=== PATIENT | male | born 1990 | race Caucasian/White ===

== ENCOUNTER 2019-12-27 17:45 | Emergency (ER) | payer BC ==
[~2019-12-27] VITALS: Ht 167.6 cm; Wt 79.5 kg
[2019-12-27 18:10] VITALS: TEMP 97.8
[2019-12-27 18:44] LABS: BASO % 0.4 % (0.0-2.0); EOS # 0.2 (0.0-0.7); EOS % 2.3 % (0-4.0); GRAN # 7.1 (1.4-6.5); GRAN % 82.7 % (42.2-75.2); HEMOGLOBIN 17.4 g/dl (13.5-18.0); LYMPH # 0.6 (1.2-3.4); LYMPH % 7.3 % (20.0-51.0); MEAN CELL VOLUME 85 fl (80.0-100.0); MEAN CORPUSCULAR HEMOGLOBIN 30 pg (27.0-31.0); MEAN CORPUSCULAR HGB CONC 36 g/dl (33.0-37.0); MEAN PLATELET VOLUME 9.8 fl (7.4-10.4); MONO # 0.6 (0.1-0.6); MONO % 6.8 % (1.7-9.3); PLATELET COUNT 177 K/mm3 (130-400); RED BLOOD COUNT 5.75 M/mm3 (4.20-5.60); REDCELL DISTRIBUTION WIDTH-CV 12.1 % (11.5-14.5)
[2019-12-27 18:59] LABS: ALANINE AMINOTRANSFERASE 130 U/L (21-72); ALKALINE PHOSPHATASE 97 U/L (50-136); ANION GAP 12 mmol/L (7-16); AST,SGOT 78 U/L (15-37); BILIRUBIN,TOTAL 1.2 mg/dL (0.0-1.0); BLOOD UREA NITROGEN 22 mg/dL (9-20); CALCIUM 9.7 mg/dL (8.4-10.2); CARBON DIOXIDE 27 mmol/L (22-30); CHLORIDE 102 mmol/L (98-107); CREATININE, serum 1.02 (0.66-1.25); GLUCOSE 97 mg/dL (74-106); LIPASE 99 U/L (23-300); POTASSIUM 3.9 mmol/L (3.4-5.0); SODIUM 141 mmol/L (137-145); TOTAL PROTEIN 8.5 gm/dL (6.4-8.2)
[2019-12-27 19:01] LABS: C-REACTIVE PROTEIN < 0.5 mg/dL (0.0-0.9)
[2019-12-27 21:22] VITALS: BP 144/90; PULSE 106
== END 2019-12-27 21:22 | disposition home or self-care (01) ==
LOC: COL.ER 17:45
PROVIDERS: Emergency Medicine
DX: K52.9 Noninfective gastroenteritis and colitis, unspecified (principal); R94.5 Abnormal results of liver function studies; Z90.89 Acquired absence of other organs
CPT/HCPCS: J2270; J2405; J7030; Q9967

== ENCOUNTER → 2019-12-28 | Outpatient (CLI) | payer BC | LOC: COL.RAD 10:39 | DX: R10.11 Right upper quadrant pain (principal) ==

== ENCOUNTER → 2021-11-08 | Outpatient (CLI) | payer BC | LOC: COL.RAD 09:08 | DX: R74.8 Abnormal levels of other serum enzymes (principal) ==

== ENCOUNTER 2024-09-30 21:02 | Emergency (ER) | payer BC ==
[~2024-09-30] VITALS: Ht 170.2 cm; Wt 75.0 kg
[2024-09-30 21:07] VITALS: TEMP 98.6
[2024-09-30] MEDS ORDERED: Morphine 4 MG/ML VIAL IV ONE (21:45)
[2024-09-30] MEDS ORDERED: NS 1,000 ML IV ONE (21:45)
[2024-09-30] MEDS ORDERED: Ondansetron 4 MG/2 ML VIAL IV ONE (21:45)
[2024-09-30 22:08] LABS: COLLECTION METHOD CLEAN CATCH
[2024-09-30 22:10] LABS: HEMOGLOBIN 14.3 g/dl (13.5-18.0); MEAN CELL VOLUME 87 fl (80.0-100.0); MEAN CORPUSCULAR HEMOGLOBIN 31 pg (27-31); MEAN CORPUSCULAR HGB CONC 36 g/dl (33.0-37.0); MEAN PLATELET VOLUME 8.9 fl (7.4-10.4); PLATELET COUNT 153 K/mm3 (130-400); RED BLOOD COUNT 4.62 M/mm3 (4.20-5.60); REDCELL DISTRIBUTION WIDTH-CV 12.4 % (11.5-14.5)
[2024-09-30] MEDS ORDERED: Iohexol 300 - 100 ML VIAL IV ONE (22:11)
[2024-09-30] MEDS ORDERED: NS 100 ML IV ONE (22:12)
[2024-09-30 22:14] LABS: PH 5.5 (5.0-8.5); URINE APPEARANCE CLEAR (CLEAR/HAZY); URINE BLOOD NEGATIVE (NEGATIVE); URINE COLOR Dark Yellow (YELLOW); URINE GLUCOSE NEGATIVE (NEGATIVE); URINE KETONE TRACE (NEGATIVE); URINE NITRATE NEGATIVE (NEGATIVE); URINE PROTEIN(semi-quant) NEGATIVE (NEGATIVE); URINE UROBILINOGEN >=8.0 E.U/dL (0.2-1.0)
[2024-09-30 22:30] LABS: ALBUMIN 3.9 g/dL (3.5-5.0); BILIRUBIN,TOTAL 1.3 mg/dL (0.2-1.2); CALCIUM 9.4 mg/dL (8.4-10.2); CREATININE, serum 1.19 mg/dL (0.72-1.25); POTASSIUM 3.7 mEq/L (3.5-4.5); TOTAL PROTEIN 7.5 g/dl (6.2-8.1)
[2024-09-30 22:31] LABS: BAND 2 % (0-10); EOSINOPHIL 2 % (0-4); NEUTROPHILS 35 % (42.0-75.2); PLATELET ESTIMATE NORMAL (NORMAL)
[2024-09-30 22:32] LABS: LYMPHOCYTE 53 % (20.0-51.0)
[2024-09-30] MEDS ORDERED: Ketorolac 15 MG/ML VIAL IV ONE (22:45)
[2024-09-30] MEDS ORDERED: Doxycycline Monohydrate 100 MG CAP PO ONE (23:00)
[2024-09-30] MEDS ORDERED: DOXYCYCLINE 10100 MG PO (23:01)
[2024-09-30 23:23] VITALS: BP 124/98; PULSE 101
== END 2024-09-30 23:23 | disposition home or self-care (01) ==
LOC: COL.ER 21:02
PROVIDERS: Emergency Medicine
DX: R10.32 Left lower quadrant pain (principal); R16.1 Splenomegaly, not elsewhere classified; R79.89 Other specified abnormal findings of blood chemistry
CPT/HCPCS: J1885; J2270; J2405; J7030; Q9967